=== PATIENT | female | born 1955 | race Caucasian/White ===

== ENCOUNTER 2017-07-14 13:13 | Emergency (ER) | payer MEDICAID ==
[~2017-07-14] VITALS: Ht 149.9 cm; Wt 70.3 kg
[2017-07-14 14:50] LABS: microscopic required? NO
[2017-07-14 15:01] LABS: UA SPECIFIC GRAVITY <=1.005 (1.005-1.035); urine erythrocyte NEGATIVE (NEGATIVE)
[2017-07-14 16:06] LABS: CARBON DIOXIDE 26.4 mmol/L (21-32); CHLORIDE SERUM 103 mmol/L (98-107); CREATININE SERUM 0.6 mg/dL (0.6-1.0); GFR1 > 60 mL/min; GLUCOSE SERUM 194 mg/dL (74-106); POTASSIUM SERUM 3.5 mmol/L (3.5-5.1); SODIUM SERUM 138 mmol/L (136-145)
[2017-07-14 16:07] LABS: BASOPHIL % 0.4 % (0-2); PLATELET COUNT 215 x10^3mcL (130-400); RED CELL DISTRIBUTION WIDTH 12.3 % (11.5-14.5)
[2017-07-14 16:10] LABS: ALBUMIN 3.7 g/dL (3.4-5.0); ALKALINE PHOSPHATASE 66 U/L (46-116); ALT/SGPT 28 U/L (14-59); AMYLASE 62 U/L (25-115); AST/SGOT 16 U/L (15-37); BILIRUBIN TOTAL 0.3 mg/dL (0.20-1.00); HDL CHOLESTEROL 45 mg/dL (40-60); LIPASE 117 IU/L (73-393); TOTAL PROTEIN, SERUM 7.2 g/dL (6.4-8.2)
[2017-07-14 16:16] LABS: CHOLESTEROL 217 mg/dL (<200)
[2017-07-14 17:27] VITALS: BP 138/78
== END 2017-07-14 17:27 | disposition home or self-care (01) ==
LOC: ED 13:13
PROVIDERS: Emergency Medicine
DX: E11.9 Type 2 diabetes mellitus without complications (principal); I10 Essential (primary) hypertension; E78.00 Pure hypercholesterolemia, unspecified
CPT/HCPCS: 82962; 83880; J1815; J7030; Q0092

== ENCOUNTER 2018-11-03 16:21 | Emergency (ER) | payer MEDICAID ==
[~2018-11-03] VITALS: Ht 142.2 cm; Wt 63.5 kg
[2018-11-03 16:27] VITALS: Ht 142.2 cm; Wt 63.5 kg
[2018-11-03 17:10] LABS: microscopic required? NO
[2018-11-03 17:29] LABS: CALCIUM 8.9 mg/dL (8.5-10.1); CARBON DIOXIDE 27.1 mmol/L (21-32); CHLORIDE SERUM 106 mmol/L (98-107); CREATININE SERUM 0.8 mg/dL (0.6-1.0); GFR1 > 60 mL/min; GLUCOSE SERUM 397 mg/dL (74-106); POTASSIUM SERUM 3.9 mmol/L (3.5-5.1); SODIUM SERUM 142 mmol/L (136-145)
[2018-11-03 17:34] LABS: ALBUMIN 3.4 g/dL (3.4-5.0); ALKALINE PHOSPHATASE 78 U/L (46-116); ALT/SGPT 19 U/L (14-59); AST/SGOT 9 U/L (15-37); BILIRUBIN TOTAL 0.27 mg/dL (0.20-1.00); TOTAL PROTEIN, SERUM 6.8 g/dL (6.4-8.2)
[2018-11-03 17:46] LABS: BASOPHIL % 0.4 % (0-2); PLATELET COUNT 177 x10^3mcL (130-400); RED CELL DISTRIBUTION WIDTH 12.5 % (11.5-14.5)
[2018-11-03 18:11] LABS: UA SPECIFIC GRAVITY 1.015 (1.005-1.035); urine erythrocyte NEGATIVE (NEGATIVE)
[2018-11-03 20:46] VITALS: BP 120/67
== END 2018-11-03 20:46 | disposition home or self-care (01) ==
LOC: ED 16:21
PROVIDERS: Emergency Medicine
DX: E11.65 Type 2 diabetes mellitus with hyperglycemia (principal); I10 Essential (primary) hypertension; E78.00 Pure hypercholesterolemia, unspecified; F32.9 Major depressive disorder, single episode, unspecified
CPT/HCPCS: 82962; J1815; J7030